=== PATIENT | female | born 1985 | race Caucasian/White ===

== ENCOUNTER 2020-02-09 11:07 | Observation (INO) | payer OTHER ==
[2020-02-09] MEDS ORDERED: hydrALAZINE 20 MG/ML VIAL SLOW IVP PRN (12:12)
[2020-02-09] MEDS ORDERED: Lactated Ringer's 1,000 ML IV SCH (12:15)
--- NOTE | 2020-02-09 12:19 | PDOC.BPN ---
- Brief Progress Note See Dictated H&P. DX: 28 weeks postcoital VB Plan: Observation as HX abruption in past after similar episode. Check RH, CBC, T&S...no active VB
[2020-02-09 13:02] VITALS: BMI 32.1
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
--- NOTE | 2020-02-09 13:36 | ULT ---
EXAM: Obstetrical ultrasound greater than 14 weeks: HISTORY: Post coital vaginal bleeding COMPARISON: None. FINDINGS: Single viable intrauterine fetus is noted in Cephalic presentation. heart rate: 140 bpm. Placenta: Anterior. Cervical length: 3.7 cm. Amniotic fluid: Within normal limits. JAYLEEN equals 14.0 Maternal Adnexa:Not visualized anatomy: Visualized brain, 4 chamber heart, chest, three-vessel cord, cord insert, stomach, bladder, kid neys, spine, and extremity regions are unremarkable. The spine was less than optimally imaged. biometry: BPD: 6.3 cm--25 weeks 4 days Head circumference: 23.0 cm--25 weeks 0 days Abdominal circumference: 20.8 cm--25 weeks 2 days Femur length:4.5 cm--25 weeks 0 days IMPRESSION: Gestational age by ultrasound: 25 weeks 1 day JESÚS by ultrasound: 05/23/2020 Estimated weight: 780 g
[2020-02-09 13:47] LABS: #Eosinphils 0.1 thou/uL (0.0-0.7); #Lymphocytes 2.3 thou/uL (1.20-3.40); #Monocytes 0.7 thou/uL (0.11-0.59); #Neutrophils 7.7 thou/uL (1.40-6.50); %Basophils 0.4 % (0.0-1.0); %Eosinophils 0.9 % (0.0-10.0); %Monocytes 6.4 % (0.0-10.0); %Neutrophils 71.3 % (42.0-75.0); Hemoglobin 11.6 g/dL (12.0-16.0); Mean Corpuscular HGB CONC 34.6 g/dL (32.0-36.0); Mean Corpuscular Hemoglobin 32.5 pg (27.0-31.0); Mean Corpuscular Volume 93.9 fL (78.0-98.0); Mean Platelet Volume 8.9 fL (7.4-10.4); Platelet Count 292 thou/uL (130-400); Red Blood Cell (RBC) Count 3.59 mill/uL (4.20-5.40); White Blood Cell (WBC) Count 10.8 thou/uL (4.8-10.8)
--- NOTE | 2020-02-09 15:00 | PDOC.BPN ---
- Brief Progress Note sono report: Anterior placenta with normal cervical length.
--- NOTE | 2020-02-09 17:30 | PDOC.BPN ---
- Brief Progress Note Patient stable. Dr Osorio has cleared patient for DC as she desires to go home. No further VB. OK for home
[2020-02-09 17:32] VITALS: TEMP 98.6
--- NOTE | 2020-02-09 17:37 | PDOC.BPN ---
- Brief Progress Note CORRECTED EDC: EGA is actually 24 weeks. CORRECTE DUE DATE FROM DR CAI (patient provided incorrect date): EDC is 05/30/20...this makes her 24 weeks 1 day This is compatible with the sono report. Patient had provided incorrect due date.
== END 2020-02-09 17:32 | disposition home health service (06) ==
LOC: L&D/OP 11:07 → L&D 12:42 → INTOOBSV 12:42
PROVIDERS: ADMIT Obstetrics & Gynecology; ATTEND Obstetrics & Gynecology
DX: O46.92 Antepartum hemorrhage, unspecified, second trimester (principal); O99.342 Other mental disorders complicating pregnancy, second trimester; F41.9 Anxiety disorder, unspecified; Z3A.24 24 weeks gestation of pregnancy; Z88.1 Allergy status to other antibiotic agents
CPT/HCPCS: 36415; 59025; 76805; 85025; 86900; 86901; 99285; G0378

== ENCOUNTER 2024-02-28 03:37 | Emergency (ER) | payer BC ==
[2024-02-28] MEDS ORDERED: Metoclopramide HCl 10 MG (2 mL) VIAL ONE (04:23)
[2024-02-28] MEDS ORDERED: Acetaminophen 500 MG TAB ONE (04:23)
[2024-02-28] MEDS ORDERED: diphenhydrAMINE 50 MG/ML VIAL ONE (04:23)
[2024-02-28 04:28] LABS: #Basophils 0.03 10x3/uL (0.0-0.2); %Basophils 0.3 % (0.0-1.0); %Eosinophils 0.6 % (0.0-10.0); %Monocytes 5.4 % (0.0-10.0); %Neutrophils 77.3 % (42.0-75.0); Hematocrit 41.2 % (36.0-47.0); Hemoglobin 14.4 g/dL (12.0-16.0); Mean Corpuscular Hemoglobin 32.6 pg (27.0-31.0); Mean Corpuscular Volume 93.2 fL (78.0-98.0); Mean Platelet Volume 10.8 fL (7.4-10.4); Platelet Count 266 10x3/uL (130-400); RBC Distribution Width 12.8 % (11.5-14.5); Red Blood Cell (RBC) Count 4.42 mill/uL (4.20-5.40)
[2024-02-28 04:37] LABS: BHCG - Serum Negative (NEGATIVE); Pregs Control Background? CLEAR/WHITE (CLR/WHITE); Pregs Control Bar Appear? YES (CONTROL BAR)
[2024-02-28 04:43] LABS: ALT (SGPT) 18 U/L (Less than 34); AST (SGOT) 25 U/L (11-34); Albumin 3.9 g/dL (3.1-4.5); Alkaline Phosphatase 90 U/L (40-110); Anion Gap 14 mmol/L (10-20); BUN (Urea Nitrogen) 8 mg/dL (7.0-18.7); Bilirubin, Total 0.4 mg/dL (0.3-1.2); Calc. Creatinine Clearance 0 mL/min (70-130); Calcium 8.6 mg/dL (7.8-10.44); Carbon Dioxide 22 mmol/L (22-29); Chloride 106 mmol/L (98-107); Estimated GFR 119; Globulin 3.1 g/dL (2.4-3.5); Glucose 106 mg/dL (70-105); Potassium 3.6 mmol/L (3.5-5.1); Sodium 138 mmol/L (136-145)
[2024-02-28] MEDS ORDERED: Etomidate 40 MG (20 mL) VIAL ONE (07:06)
[2024-02-28] MEDS ORDERED: Rocuronium Bromide 10 MG/ML (10ML VIAL) ONE (07:07)
[2024-02-28] MEDS ORDERED: fentaNYL 50 mcg/mL 1 mL Vial ONE ×4 (07:23→08:17)
[2024-02-28] MEDS ORDERED: Midazolam HCl 2 mg/2 ml Vial ONE (07:26)
[2024-02-28] MEDS ORDERED: Fentanyl CADD 100 ML IV SCH (07:30)
[2024-02-28] MEDS ORDERED: Mannitol 12.5 GM/50 ML ONE ×3 (07:53→07:58)
[2024-02-28 08:16] LABS: Analyzer IN Cardio ER; Base Excess (BEa) -2.9 mEq/L (-2.0 to +3.0); CO2 Tension 34.2 mmHg (35.0-45.0); Carboxyhemoglobin (COHb) 0.7 gm% (0.0-3.0); Hematocrit-ABG 37 % (36.0-47.0); Hemoglobin (Hb) 12.7 g/dL (12.0-16.0); O2 Tension (PaO2), arterial 130.2 mmHg (80.0-100.0); Potassium - ABG Lab 3.44 mmol/L (3.70-5.30); pH, Arterial 7.407 (7.35-7.45)
[2024-02-28 08:18] LABS: Puncture Site Left Radial artery
[2024-02-28] MEDS ORDERED: Iopamidol-370 76% 500 ML MDV (1 ML CHARGE) ONE (09:02)
== END 2024-02-28 09:01 | disposition short-term general hospital (02) ==
LOC: ERS 03:37
DX: I62.9 Nontraumatic intracranial hemorrhage, unspecified (principal); I67.1 Cerebral aneurysm, nonruptured; R29.700 NIHSS score 0
CPT/HCPCS: 36415; 36600; 70450; 70496; 71045; 80053; 82805; 84703; 85025; 94002; J1200; J2150; J2250; J2765; J3010; Q9967

== ENCOUNTER 2024-03-06 07:22 | Emergency (ER) | payer BC ==
[2024-03-06 08:35] LABS: #Basophils 0.05 10x3/uL (0.0-0.2); %Basophils 0.4 % (0.0-1.0); %Eosinophils 2.7 % (0.0-10.0); %Lymphocytes 24.4 % (21.0-51.0); %Monocytes 12.2 % (0.0-10.0); %Neutrophils 59.6 % (42.0-75.0); Hemoglobin 12.6 g/dL (12.0-16.0); Mean Corpuscular HGB CONC 34.1 g/dL (32.0-36.0); Mean Corpuscular Hemoglobin 32.4 pg (27.0-31.0); Mean Corpuscular Volume 95.1 fL (78.0-98.0); Mean Platelet Volume 10.3 fL (7.4-10.4); Platelet Count 406 10x3/uL (130-400); Red Blood Cell (RBC) Count 3.89 mill/uL (4.20-5.40)
[2024-03-06 08:58] LABS: Alcohol Less than 10.0 mg/dL (Less than 10)
[2024-03-06 09:01] LABS: ALT (SGPT) 90 U/L (Less than 34); AST (SGOT) 70 U/L (11-34); Albumin 3.7 g/dL (3.1-4.5); Alkaline Phosphatase 128 U/L (40-110); Anion Gap 16 mmol/L (10-20); BUN (Urea Nitrogen) 6 mg/dL (7.0-18.7); Bilirubin, Total 0.2 mg/dL (0.3-1.2); Calc. Creatinine Clearance 0 mL/min (70-130); Calcium 9.4 mg/dL (7.8-10.44); Carbon Dioxide 19 mmol/L (22-29); Chloride 112 mmol/L (98-107); Estimated GFR 119; Globulin 3.2 g/dL (2.4-3.5); Glucose 81 mg/dL (70-105); Potassium 3.6 mmol/L (3.5-5.1); Protein, Total 6.9 g/dL (6.0-8.3); Sodium 143 mmol/L (136-145)
[2024-03-06 09:02] LABS: BHCG - Serum Negative (NEGATIVE); Pregs Control Background? CLEAR/WHITE (CLR/WHITE); Pregs Control Bar Appear? YES (CONTROL BAR)
[2024-03-06 09:02] LABS: Acetaminophen Less than 10 mcg/mL (Less than 10); Alcohol Less than 10.0 mg/dL (Less than 10); Salicylate Less than 8.0 mg/dL (Less than 8.0)
[2024-03-06 09:14] LABS: Amphetamine Detected (NotDetected); Barbiturates Screen Detected (NotDetected); Benzodiazepine Screen Detected (NotDetected); Cocaine Metabolite Screen Not Detected (NotDetected); Methadone Not Detected (NotDetected); Methamphetamine Detected (NotDetected); Opiate Screen Not Detected (NotDetected); Oxycodone Screen Not Detected (NotDetected); Phencyclidine (PCP) Not Detected (NotDetected); THC/Cannabinoid Screen Not Detected (NotDetected); Tricyclic Screen Not Detected (NotDetected)
[2024-03-06] MEDS ORDERED: Nicotine 14 MG PATCH ONE (09:34)
[2024-03-06 09:40] LABS: Prothrombin Time 13.6 sec (12.0-14.7)
[2024-03-06] MEDS ORDERED: Acetaminophen 500 MG TAB ONE (10:56)
== END 2024-03-06 14:47 | disposition short-term general hospital (02) ==
LOC: ERS 07:22
DX: I61.9 Nontraumatic intracerebral hemorrhage, unspecified (principal)
CPT/HCPCS: 36415; 70450; 80053; 80306; 80307; 84703; 85025; 85610; 85730; 93005